=== PATIENT | female | born 1970 | race Caucasian/White ===

== ENCOUNTER 2016-08-12 10:31 | Outpatient (CLI) | payer OTHER ==
--- NOTE | 2016-08-14 15:06 | DIAGNOSTIC IMAGING REPORT ---
PROCEDURE: MR LOW EXT NONJOINT WO CON-LT INDICATION: LEFT FOOT AND ANKLE PAIN X 4-5 MONTHS TECHNIQUE: Sagittal, axial, coronal, coronal oblique, and axial oblique T1 and STIR sequences obtained through the ankle and foot. COMPARISON: None. FINDINGS: Osseous structures and articular surfaces: Trace edema along the plantar surface centrally in the first metatarsal head. Otherwise normal marrow signal and normal bony alignment. Ligaments: The anterior talofibular ligament is intact. The calcaneofibular ligament is intact but appears mildly lax. There is intermediate signal in the expected location of the posterior talofibular ligament which appears relatively intact. There is slight thickening and intermediate signal in the expected location of the deltoid ligament without significant surrounding edema. Adjacent spring ligament bands appear intact. Superiorly, anterior and posterior tibiofibular ligaments are intact. Lisfranc ligament appears intact. Tendons: The medial and anterior tendon groups appear normal in position and signal. The peroneus brevis tendon is diminutive and demonstrates intermediate signal without surrounding edema or tenosynovitis. The Achilles tendon is intact. Soft tissues, musculature, and fluid: The plantar fascia is normal. Sinus tarsi demonstrates a normal fatty signal. No suspicious masses. Musculature is normal in bulk and signal. Neurovascular bundles are normal. Minor subcutaneous edema in the proximal ankle laterally. IMPRESSION: 1. 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 2. Chronic, partial tearing of the deltoid ligaments, posterior talofibular ligament, and potentially calcaneofibular ligaments. 3. Minor degenerative changes at the first metatarsal head.
== END 2016-08-12 23:00 ==
LOC: MRI SRH 10:31
DX: S86.312A Strain of muscle(s) and tendon(s) of peroneal muscle group at lower leg level, left leg, initial encounter (principal); S93.412A Sprain of calcaneofibular ligament of left ankle, initial encounter; S93.422A Sprain of deltoid ligament of left ankle, initial encounter; S93.492A Sprain of other ligament of left ankle, initial encounter